=== PATIENT | male | born 1965 | race African-American/Black ===

== ENCOUNTER 2020-01-08 12:11 | Emergency (ER) | payer OTHER ==
[~2020-01-08] VITALS: Ht 185.4 cm; Wt 72.6 kg
[2020-01-08 12:17] VITALS: BP 143/96
[2020-01-08] MEDS ORDERED: LIDOCAINE 1%-EPI 1:100,000 20 ML VIAL ONE (12:25)
[2020-01-08] MEDS ORDERED: LIDOCAINE 1%-EPI 1:100,000 50 ML VIAL IJ ONE (12:30)
[2020-01-08] MEDS ORDERED: TDAP [DIPH/PERTUSSIS/TET] 0.5 ML VIAL IM ONE ×2 (13:00→13:01)
== END 2020-01-08 13:11 | disposition home or self-care (01) ==
LOC: ER 12:14
DX: S01.112A Laceration without foreign body of left eyelid and periocular area, initial encounter (principal); S09.8XXA Other specified injuries of head, initial encounter; W01.198A Fall on same level from slipping, tripping and stumbling with subsequent striking against other object, initial encounter; Y93.89 Activity, other specified; Y92.89 Other specified places as the place of occurrence of the external cause; Y99.8 Other external cause status
CPT/HCPCS: 12011; 90471; 90715; 99283; A6403; J3490